=== PATIENT | female | born 1960 | race Caucasian/White ===

== ENCOUNTER 2021-02-13 20:04 | Emergency (ER) | payer MEDICAID ==
[~2021-02-13] VITALS: Ht 152.4 cm; Wt 54.4 kg
[2021-02-13] MEDS ORDERED: IMURAN50 MG PO (20:21)
== END 2021-02-14 00:49 | disposition home or self-care (01) ==
LOC: ED 20:04
DX: F10.129 Alcohol abuse with intoxication, unspecified (principal); Y90.8 Blood alcohol level of 240 mg/100 ml or more
CPT/HCPCS: 80053; 85025; 99284; G0480